=== PATIENT | female | born 1935 | race Asian ===

== ENCOUNTER 2017-02-27 08:48 | Emergency (ER) | payer MEDICAID ==
[~2017-02-27] VITALS: Ht 154.9 cm; Wt 59.9 kg
[~2017-02-27 08:48] MED LIST: NOR10 PO
[2017-02-27 08:57] VITALS: BP_SYST 155
--- NOTE | 2017-02-27 08:57 | NUR ---
PATIENT TO ER BED 8.DAUGHTER AT BEDSIDE.PER PATIENT SHE HAS BEEN HAVING NUMBNESS TO UPPER EXTREMITIES UPON WAKING UP IN THE MORNING.COMPLAINING OF PAIN TO RIGHT BUTTOCK EXTENDING TO RIGHT LEG 12/04.NO SWELLING TO ALL EXTREMITIES;NO REDNESS.ABLE TO MOVE ALL EXTREMITIES WITHOUT DIFFICULTY.NO OTHER COMPLAIN /INJURIES PER PATIENT OR NOTED Addendum: 02/27/17 at 0913 by DENIZ SYMPTOMS STARTED A MONTH AGO
--- NOTE | 2017-02-27 08:59 | NUR ---
Pt placed to ER bed 08, report given to BERTO Maciel.
--- NOTE | 2017-02-27 09:00 | NUR ---
Dr. Serrato at bedside to evaluate pt.
[2017-02-27 09:37] LABS: BILIRUBIN,URINE NEGATIVE (NEGATIVE); CLARITY/URINE CLEAR (CLEAR); COLOR,URINE YELLOW (YELLOW); GLUCOSE,URINE NEGATIVE (NEGATIVE); KETONES,URINE NEGATIVE (NEGATIVE); LEUKOCYTE ESTERASE ,URINE 3+ (NEGATIVE); NITRITE, URINE NEGATIVE (NEGATIVE); PROTEIN URINE TRACE (NEGATIVE); UROBILINOGEN,URINE 0.2 (0.2-1.0)
[2017-02-27 09:38] LABS: BASOPHILS % (AUTO) 0.4 % (0.0-2.0); EOSINOPHILS % (AUTO) 0.5 % (0.0-4.0); HEMOGLOBIN 13.9 g/dL (12.0-16.0); LYMPHOCYTES # (AUTO) 1.9 K/uL (1.0-5.5); LYMPHOCYTES % (AUTO) 28.5 % (20.5-51.5); MEAN CORPUSCULAR HEMOGLOBIN 32 pg (27-31); MEAN CORPUSCULAR HGB CONC 34 % (32-36); MEAN CORPUSCULAR VOLUME 94 fL (79.0-98.0); MONOCYTES # (AUTO) 0.8 K/uL (0.0-1.0); MONOCYTES % (AUTO) 11.6 % (1.7-9.3); NEUTROPHILS # (AUTO) 3.9 K/uL (1.8-7.7); PLATELET COUNT (AUTO) 205 K/uL (130-430); RED BLOOD CELL COUNT(AUTO) 4.35 MIL/uL (4.2-6.2); RED CELL DISTRIBUTION WIDTH 11.8 % (9.0-15.0); WHITE BLOOD COUNT (AUTO) 6.6 K/uL (4.8-10.8)
--- NOTE | 2017-02-27 09:39 | NUR ---
PATIENT TO RADIOLOGY FOR XRAY
[2017-02-27 09:40] LABS: BLOOD, URINE TRACE (NEGATIVE)
[2017-02-27 09:45] LABS: BACTERIA,URINE FEW /HPF (None Seen); MUCUS,URINE None Seen /LPF (None Seen); RBC,URINE 0-3 /HPF (0-3); WBC,URINE 0-3 /HPF (0-3)
[2017-02-27] MEDS ORDERED: NAPROXEN 250 MG TABLET PO ONE (09:45)
[2017-02-27 09:50] LABS: PROTHROMBIN TIME 10.4 SECS (9.5-12.5)
[2017-02-27 09:51] LABS: ANION GAP 10 (5-15); CALCIUM 9.8 mg/dL (8.4-11.0); CHLORIDE 101 mmol/L (98-107); CREATININE 1.32 mg/dL (0.55-1.30); GLUCOSE 155 mg/dL (70-99); SODIUM SERUM 141 mmol/L (136-145); UREA NITROGEN, BLOOD 14 mg/dL (8-21)
[2017-02-27 09:56] LABS: ALANINE AMINOTRANSFERASE 25 U/L (12-78); ALBUMIN 4.4 g/dL (3.4-4.8); ASPARTATE AMINOTRANSFERASE 22 U/L (10-37); TOTAL BILIRUBIN 0.5 mg/dL (0.0-1.0); TOTAL PROTEIN, SERUM 9.1 g/dL (6.4-8.3)
[2017-02-27] MEDS ORDERED: POTASSIUM CHLORIDE 20 MEQ TAB.PRT.SR PO ONE (10:30)
[2017-02-27 10:39] VITALS: BP_SYST 151
--- NOTE | 2017-02-27 10:40 | NUR ---
Patient given written and verbal discharge instructions and verbalizes understanding. ER MD discussed with patient the results and treatment provided. Patient in stable condition. ID arm band removed. Rx of naproxen and cephalexin given. Patient educated on pain management and to follow up with PMD. Pain Scale 0/10. Opportunity for questions provided and answered.
== END 2017-02-27 10:39 | disposition home or self-care (01) ==
LOC: SED 08:48
DX: N39.0 Urinary tract infection, site not specified (principal); G58.8 Other specified mononeuropathies; E23.2 Diabetes insipidus; R31.9 Hematuria, unspecified; I10 Essential (primary) hypertension
CPT/HCPCS: 36415; 72040-TC; 72100-TC; 80053; 81000-TC; 83605; 83880; 84484; 85025; 85610-TC; 85730-TC; 87040-TC; 93005; 99285